=== PATIENT | male | born 1940 | race Caucasian/White ===

== ENCOUNTER 2018-08-07 09:00 | Outpatient (CLI) | payer MEDICARE, OTHER ==
--- NOTE | 2018-08-07 12:22 | XRAY Report ---
Reason: PAIN IN RIGHT HIP,OSTEOARTHRITIS,RIGHT HIP Procedure Date: 08/07/2018 Accession Number: [id number] / [id number] Procedure: XR - Hip w/Pelvis 2-3V RT CPT Code: FULL RESULT: EXAM: RIGHT HIP AND PELVIS RADIOGRAPHY EXAM DATE: 08/07/2018 09:25 AM. HISTORY: Osteoarthritis and pain in right hip. COMPARISONS: None. TECHNIQUE: 1 view of the pelvis and 1 view of the hip. FINDINGS: Bones: No fracture or bone lesion. 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 The bilateral femoral heads demonstrate flattening deformities superiorly with an appearance suggestive of history of avascular necrosis. No dislocation. Soft Tissues: Normal. No soft tissue swelling. IMPRESSION: End-stage degenerative joint disease. [facility]
== END 2018-08-07 09:01 | disposition home or self-care (01) ==
LOC: DI 09:00
PROVIDERS: ATTEND Family Medicine
DX: M16.11 Unilateral primary osteoarthritis, right hip (principal)